=== PATIENT | male | born 1945 | race Caucasian/White ===

== ENCOUNTER → 2016-12-03 | Outpatient (REF) | payer MEDICARE, BC ==
[~2016-12-03] MED LIST: ADVA230A INH; ALBU17IN INH; ATEN50TA2 PO; ATOR1TAB21 PO; AVOD0.5C PO; CIPR500T3 PO; GLIM4TAB PO; HYDR12.55 PO; JANU100T PO; METF500T PO; NUCY50TA9 PO; OMEP40CA2 PO; POTA10CA PO; TAMS0.4C2 PO; TIOT18INH INH; TYLE650T30 PO; VALS1TAB48 PO
== END ==
LOC: M SMT 17:10
PROVIDERS: ATTEND Urology
DX: C67.9 Malignant neoplasm of bladder, unspecified (principal)

== ENCOUNTER → 2017-04-01 | Outpatient (CLI) | payer MEDICARE ==
[2017-04-01 13:50] LABS: MEAN CORPUSCULAR HEMOGLOBIN 34.1 pg (27.0-33.0); MEAN CORPUSCULAR HGB CONC 34.5 g/dl (32.0-36.5); MEAN CORPUSCULAR VOLUME 98.8 fl (80.0-96.0); RED CELL DISTRIBUTION WIDTH 13.7 % (11.5-14.5); WHITE BLOOD COUNT 9.1 K/mm3 (4.0-10.0)
[2017-04-01 14:24] LABS: ANION GAP 8 MEQ/L (8-16); BLOOD UREA NITROGEN 13 MG/DL (7-18); CALCIUM LEVEL 9.3 MG/DL (8.8-10.2); CARBON DIOXIDE LEVEL 31 MEQ/L (21-32); CHLORIDE LEVEL 103 MEQ/L (98-107); CREATININE FOR GFR 0.88 MG/DL (0.70-1.30); GLOMERULAR FILTRATION RATE > 60.0 (>49); GLUCOSE, FASTING 152 MG/DL (80-110); POTASSIUM SERUM 4.1 MEQ/L (3.5-5.1); SODIUM LEVEL 142 MEQ/L (136-145)
== END ==
LOC: M SMT 09:11
PROVIDERS: ATTEND Urology
DX: C67.9 Malignant neoplasm of bladder, unspecified (principal); Z79.899 Other long term (current) drug therapy

== ENCOUNTER → 2017-05-06 | Outpatient (REF) | payer MEDICARE, BC | LOC: M SMT 17:14 | PROVIDERS: ATTEND Urology | DX: C67.9 Malignant neoplasm of bladder, unspecified (principal) ==

== ENCOUNTER → 2017-08-26 | Outpatient (REF) | payer BC, MEDICARE ==
[~2017-08-26] MED LIST changes: -METF500T PO; +METF500T13 PO; +NUCY50TA6 PO; -NUCY50TA9 PO
== END ==
LOC: M SMT 16:45
PROVIDERS: ATTEND Urology
DX: C67.9 Malignant neoplasm of bladder, unspecified (principal)

== ENCOUNTER → 2017-12-12 | Outpatient (REF) | payer MEDICARE ==
[2017-12-12 17:30] LABS: INR 1.01; PROTHROMBIN TIME 13.4 SECONDS (12.4-14.5)
[2017-12-12 17:31] LABS: PARTIAL THROMBOPLASTIN TIME 30.3 SECONDS (26.8-37.9)
[2017-12-12 17:50] LABS: PLATELET COUNT, AUTOMATED 55 10^3/uL (150-450)
[2017-12-12 17:50] LABS: IMMATURE PLATELET FRACTION % 20.4 % (0.0-10.9)
== END ==
LOC: M LAB REF 16:52
DX: R91.8 Other nonspecific abnormal finding of lung field (principal); Z79.01 Long term (current) use of anticoagulants
CPT/HCPCS: 85049

== ENCOUNTER → 2017-12-26 | Outpatient (CLI) | payer MEDICARE ==
[~2017-12-26] MED LIST changes: -ADVA230A INH; -ALBU17IN INH; -ATEN50TA2 PO; -ATOR1TAB21 PO; -AVOD0.5C PO; -CIPR500T3 PO; -GLIM4TAB PO; -HYDR12.55 PO; -JANU100T PO; +LIDOCAINE 1% MDV 20ML VIAL As Ordered; -METF500T13 PO; -NUCY50TA6 PO; -OMEP40CA2 PO; -POTA10CA PO; -TAMS0.4C2 PO; -TIOT18INH INH; -TYLE650T30 PO; -VALS1TAB48 PO
== END ==
LOC: M RADPRO 09:41
DX: R91.8 Other nonspecific abnormal finding of lung field (principal); I10 Essential (primary) hypertension; E78.00 Pure hypercholesterolemia, unspecified; J44.9 Chronic obstructive pulmonary disease, unspecified; K21.9 Gastro-esophageal reflux disease without esophagitis; F17.210 Nicotine dependence, cigarettes, uncomplicated; C67.9 Malignant neoplasm of bladder, unspecified; E11.9 Type 2 diabetes mellitus without complications; E87.70 Fluid overload, unspecified; Z79.84 Long term (current) use of oral hypoglycemic drugs; Z79.899 Other long term (current) drug therapy; Z85.528 Personal history of other malignant neoplasm of kidney
CPT/HCPCS: 32405

== ENCOUNTER → 2017-12-30 | Outpatient (REF) | payer MEDICARE, BC | LOC: M SMT 17:35 | DX: Z85.51 Personal history of malignant neoplasm of bladder (principal) | CPT/HCPCS: 88108 ==

== ENCOUNTER → 2018-01-06 | Outpatient (CLI) | payer MEDICARE | LOC: M RAD 10:20 | DX: Z09 Encounter for follow-up examination after completed treatment for conditions other than malignant neoplasm (principal); Z85.51 Personal history of malignant neoplasm of bladder; S22.42XD Multiple fractures of ribs, left side, subsequent encounter for fracture with routine healing; X58.XXXD Exposure to other specified factors, subsequent encounter; R93.8 Abnormal findings on diagnostic imaging of other specified body structures | CPT/HCPCS: 78306 ==